=== PATIENT | male | born 1990 | race Caucasian/White ===

== ENCOUNTER 2022-06-15 23:58 | Emergency (ER) | payer MEDICAID ==
[~2022-06-15] VITALS: Ht 177.8 cm; Wt 59.0 kg
[2022-06-16 00:08] VITALS: BP 144/85
[2022-06-16] MEDS ORDERED: ALBU18HF2 INH (03:12)
== END 2022-06-16 03:41 | disposition home or self-care (01) ==
LOC: ER 23:59
DX: R06.02 Shortness of breath (principal); R09.81 Nasal congestion; F41.9 Anxiety disorder, unspecified; F32.A Depression, unspecified; F17.200 Nicotine dependence, unspecified, uncomplicated; F12.90 Cannabis use, unspecified, uncomplicated; Z79.899 Other long term (current) drug therapy
CPT/HCPCS: 71045; 93005; 99283

== ENCOUNTER 2022-11-13 21:41 | Emergency (ER) | payer MEDICAID ==
[~2022-11-13] VITALS: Ht 177.8 cm; Wt 63.6 kg
[~2022-11-13 21:41] MED LIST: ALBU18HF2 INH
[2022-11-13 21:58] VITALS: BP 167/102
[2022-11-14] MEDS ORDERED: dexamethasone sod phosphate 10mg/ml inj PO STA (02:23)
[2022-11-14] MEDS ORDERED: AZIT-83 PO (02:25)
== END 2022-11-14 02:33 | disposition home or self-care (01) ==
LOC: ER 21:42
DX: J40 Bronchitis, not specified as acute or chronic (principal); F12.90 Cannabis use, unspecified, uncomplicated
CPT/HCPCS: 99283; J1100

== ENCOUNTER 2023-05-06 13:01 | Emergency (ER) | payer MEDICAID ==
[~2023-05-06] VITALS: Ht 177.8 cm; Wt 58.6 kg
[2023-05-06 13:08] VITALS: BP 125/89; PULSE 83; RESP 14; TEMP 98.8; O2SAT 99
[2023-05-06] MEDS ORDERED: SULF1TAB49 PO (15:35)
[2023-05-06] MEDS ORDERED: NAPR-1154 PO (15:35)
[2023-05-06] MEDS ORDERED: CEPH-585 PO (15:35)
== END 2023-05-06 15:50 | disposition home or self-care (01) ==
LOC: ER 13:01
DX: M54.50 Low back pain, unspecified (principal); R22.2 Localized swelling, mass and lump, trunk; F41.9 Anxiety disorder, unspecified; F32.A Depression, unspecified; F12.90 Cannabis use, unspecified, uncomplicated; Z79.899 Other long term (current) drug therapy
CPT/HCPCS: 99283

== ENCOUNTER 2023-11-22 19:59 | Emergency (ER) | payer MEDICAID ==
[~2023-11-22] VITALS: Ht 177.8 cm; Wt 65.0 kg
[~2023-11-22 19:59] MED LIST changes: +CEPH-585 PO; +NAPR-1154 PO
[2023-11-22 20:18] VITALS: BP 132/88; PULSE 85; RESP 18; TEMP 99; O2SAT 98
[2023-11-22] MEDS ORDERED: AMOX500C2 PO (21:30)
[2023-11-22] MEDS ORDERED: BENZ9GEL3 MM (21:30)
== END 2023-11-22 21:44 | disposition home or self-care (01) ==
LOC: ER 20:00
DX: J02.9 Acute pharyngitis, unspecified (principal); K12.0 Recurrent oral aphthae
CPT/HCPCS: 99283